=== PATIENT | female | born 1985 | race African-American/Black ===

== ENCOUNTER 2017-01-27 15:28 | Emergency (ER) | payer MEDICAID, OTHER ==
[~2017-01-27 15:28] MED LIST: CLIN1CAP5 PO; IBUP800T23 PO; MMW SSP; TRAM50 PO
[2017-01-27 15:30] VITALS: BP 133/78; PULSE 72; RESP 16; TEMP 98.2; O2SAT 99
[2017-01-27] MEDS ORDERED: diphenhydrAMINE HCL 25 MG CAP PO ONE (16:00)
[2017-01-27] MEDS ORDERED: predniSONE 50 MG TAB PO ONE (16:00)
[2017-01-27] MEDS ORDERED: FAMOTIDINE 20 MG TAB PO ONE (16:00)
[2017-01-27] MEDS ORDERED: PRED50 PO (17:06)
--- NOTE | 2017-01-27 17:06 | PD ---
HPI Chief Complaint: Allergic/Adverse Reaction Time Seen by Provider: 15:44 Travel History International Travel<30 days: No Contact w/Intl Traveler<30days: No Traveled to known affect area: No History of Present Illness HPI Patient is a 31 year old female who comes in complaining of itching and swelling to her left arm and eyelid as well as itching. She says she noticed a bump to her left shoulder that was very itchy last night. She also noticed one next to her left eye. She says it got worse and people at work told her she should come to the ED. she says she was cleaning her house yesterday and does not know if there was some sort of insect that bit better. She was concerned about possible brown recluse bite. She denies any swelling of her mouth or throat. She denies any difficulty breathing. PFSH Past Medical History Blood Disorders: No Depression: Yes Cancer: No Cardiovascular Problems: No Diabetes: No Patient Takes Glucophage: No Diminished Hearing: No Endocrine: No Gastrointestinal Disorders: No Genitourinary: No Immune Disorder: No Musculoskeletal: No Neurologic: No Psychiatric: Yes Reproductive: No Respiratory: No Tetanus Vaccination: < 5 Years ?: Not LMP: 12/29/2016 : 3 Para: 3 Tubal Ligation: Yes (2010) Past Surgical History Abdominal Surgery: No Cardiac Surgery: No Section: Yes Ear Surgery: No Endocrine Surgery: No Eye Surgery: No Genitourinary Surgery: No Gynecologic Surgery: Yes ( ) Neurologic Surgery: No Oral Surgery: No Thoracic Surgery: No Other Surgery: Yes Social History Alcohol Use: No Tobacco Use: Yes (4-5 per day) Substance Use: No Allergies-Medications (Allergen,Severity, Reaction): Coded Allergies: Penicillin (Verified Allergy, Severe, HIVES, 12/22/14) Reported Meds & Prescriptions Reported Meds & Active Scripts Active Magic Mouthwash-Diphenhy Formula (Lidocaine/Diphenhydr/Alum/Mg/Simeth) Ml 5-10 Ml SSP 5 TIMES A DAY PRN MAGIC MOUTHWASH CONTAINS 1/3 VISCOUS LIDOCAINE, 1/3 MAALOX, AND 1/3 BENADRYL. Ultram (Tramadol HCl) 50 Mg Tab 50 Mg PO Q6 PRN FOR PAIN Ibuprofen 800 Mg Tab 800 Mg PO Q6 PRN Clindamycin Hcl (Clindamycin HCl) 150 Mg Cap 2 Tab PO Q8H 14 Days Review of Systems General / Constitutional: No: Fever, Chills Eyes: No: Blurred Vision HENT: No: Headaches, Lightheadedness Cardiovascular: No: Chest Pain or Discomfort Respiratory: No: Shortness of Breath, Wheezing Gastrointestinal: No: Nausea, Vomiting Musculoskeletal: Positive: Edema Skin: Positive Rash, Positive Itching Neurologic: No: Weakness, Dizziness Physical Exam Narrative GENERAL: Awake and alert, in no acute distress. SKIN: Focused skin assessment warm/dry. Insect bite to left posterior shoulder with surrounding swelling. Swelling of the left upper and lower eyelid. HEAD: Atraumatic. Normocephalic. EYES: Pupils equal and round. No scleral icterus. Extraocular movements intact , no pain with eye movement. No conjunctival injection. ENT: Mucous membranes pink and moist. No tongue swelling. No pharyngeal swelling. CARDIOVASCULAR: Regular rate and rhythm. No murmur appreciated. RESPIRATORY: No accessory muscle use. Clear to auscultation. Breath sounds equal bilaterally. MUSCULOSKELETAL: No obvious deformities. No clubbing. No cyanosis. NEUROLOGICAL: Awake and alert. No obvious cranial nerve deficits. Motor grossly within normal limits. Normal speech. Data Data Last Documented VS Vital Signs Date Time Temp Pulse Resp B/P Pulse Ox O2 Delivery O2 Flow Rate FiO2 01/27/17 16:32 Room Air 01/27/17 15:43 16 01/27/17 15:30 98.2 72 133/78 99 Orders Prednisone (Deltasone) (01/27/17 16:00) Diphenhydramine (Benadryl) (01/27/17 16:00) Famotidine (Pepcid) (01/27/17 16:00) [facility] Medical Decision Making Medical Screen Exam Complete: Yes Emergency Medical Condition: Yes Medical Record Reviewed: Yes Differential Diagnosis Insect bites versus allergic reaction versus cellulitis Narrative Course Patient is a 31-year-old female comes in complaining of itching and swelling to her left shoulder as well as her left eye. Exam shows what looks to be insect bites with surrounding edema. There is no signs of airway compromise. Patient given a dose of prednisone, Benadryl, famotidine. Her symptoms improved. Given a prescription for prednisone. Advised to continue Benadryl as needed for itching and swelling. Advised to follow-up with her doctor. Advised to return to the ED as needed for any worsening symptoms. Diagnosis Primary Impression: Insect bite Qualified Code: W57.XXXA - Insect bite, initial encounter Additional Impression: Allergic reaction Qualified Code: T78.40XA - Allergic reaction, initial encounter Patient Instructions: General Allergic Reaction (ED), General Instructions, Insect Bite or Sting (ED) Additional Instructions: Take Benadryl as needed for itching/swelling. Take the Prednisone starting tomorrow as you already had a dose today. Follow up with your doctor. Return to the ED as needed for any worsening symptoms. Scripts Prednisone 50 Mg Tab50 Mg PO DAILY 3 Days Ref 0 Prov:Lucrecia Klein MD 01/27/17 Disposition: 01 DISCHARGE HOME Condition: Stable Lucrecia Klein MD January 27, 2017 17:06
[2017-01-27 17:20] VITALS: BP 128/74
== END 2017-01-27 17:25 | disposition home or self-care (01) ==
LOC: NEPD 16:22
DX: S40.262A Insect bite (nonvenomous) of left shoulder, initial encounter (principal); S00.262A Insect bite (nonvenomous) of left eyelid and periocular area, initial encounter; T78.40XA Allergy, unspecified, initial encounter; Z72.0 Tobacco use; Z86.59 Personal history of other mental and behavioral disorders; W57.XXXA Bitten or stung by nonvenomous insect and other nonvenomous arthropods, initial encounter
CPT/HCPCS: 99283; J7512

== ENCOUNTER 2017-09-06 20:16 | Emergency (ER) | payer MEDICAID ==
[~2017-09-06 20:16] MED LIST changes: +PRED50 PO
[2017-09-06 20:18] VITALS: BP 135/70; PULSE 90; RESP 16; TEMP 99.2; O2SAT 98
== END 2017-09-06 21:00 | disposition left against medical advice (07) ==
LOC: NED 20:16
DX: Z53.21 Procedure and treatment not carried out due to patient leaving prior to being seen by health care provider (principal)
CPT/HCPCS: 99281

== ENCOUNTER 2017-09-07 19:41 | Emergency (ER) | payer MEDICAID ==
[2017-09-07 19:43] VITALS: BP 124/58; PULSE 69; RESP 16; TEMP 99.2; O2SAT 98
--- NOTE | 2017-09-07 21:08 | PD ---
HPI Chief Complaint: ENT Complaint Time Seen by Provider: 19:49 Travel History International Travel<30 days: No Contact w/Intl Traveler<30days: No Traveled to known affect area: No History of Present Illness HPI Patient is a 32-year-old female presenting to him in for evaluation of right ear pain, sore throat, headache. Patient states the pain started in her left upper tooth, she feels this is what is causing her ear pain and sore throat as well as headache. She states initially ibuprofen was controlling her symptoms regarding the toothache however the symptoms gradually worsened prompting her visit to the emergency department. Patient denies any visual changes, fever, chills, nausea, vomiting. She denies any dysphasia or drooling. She reports pain as a 5 out of 10 and states it is sore and aching. She has not attempted to contact a dentist regarding her toothache. Exacerbated with chewing and movement. It is somewhat relieved at rest. PFSH Past Medical History Blood Disorders: No Depression: Yes Cancer: No Cardiovascular Problems: No Diabetes: No Diminished Hearing: No Endocrine: No Gastrointestinal Disorders: No Genitourinary: No Immune Disorder: No Musculoskeletal: No Neurologic: No Psychiatric: Yes Reproductive: No Respiratory: No ?: Unknown LMP: 08/07/17 : 3 Para: 3 Tubal Ligation: Yes (2010) Past Surgical History Abdominal Surgery: No Cardiac Surgery: No Section: Yes Ear Surgery: No Endocrine Surgery: No Eye Surgery: No Genitourinary Surgery: No Gynecologic Surgery: Yes ( ) Neurologic Surgery: No Oral Surgery: No Thoracic Surgery: No Other Surgery: Yes Social History Alcohol Use: No Tobacco Use: Yes (4-5 per day) Substance Use: No Allergies-Medications (Allergen,Severity, Reaction): Coded Allergies: penicillin G (Unverified Allergy, Severe, HIVES, 04/17/17) Reported Meds & Prescriptions Reported Meds & Active Scripts Active Prednisone 50 Mg Tab 50 Mg PO DAILY 3 Days Magic Mouthwash-Diphenhy Formula (Lidocaine/Diphenhydr/Alum/Mg/Simeth) Ml 5-10 Ml SSP 5 TIMES A DAY PRN MAGIC MOUTHWASH CONTAINS 1/3 VISCOUS LIDOCAINE, 1/3 MAALOX, AND 1/3 BENADRYL. Ultram (Tramadol HCl) 50 Mg Tab 50 Mg PO Q6 PRN FOR PAIN Ibuprofen 800 Mg Tab 800 Mg PO Q6 PRN Clindamycin Hcl (Clindamycin HCl) 150 Mg Cap 2 Tab PO Q8H 14 Days Review of Systems Except as stated in HPI: all other systems reviewed are Neg HENT: Positive: Headaches, Sore Throat, Dental Difficulties Physical Exam Narrative GENERAL: Well-appearing well-developed, alert female. Resting in no acute distress. SKIN: Warm and dry. HEAD: Normocephalic. EYES: No scleral icterus. No injection or drainage. CARDIOVASCULAR: Regular rate RESPIRATORY: No accessory muscle use. Data Data Last Documented VS Vital Signs Date Time Temp Pulse Resp B/P (MAP) Pulse Ox O2 Delivery O2 Flow Rate FiO2 09/07/17 19:43 99.2 69 16 124/58 (80) 98 Room Air MDM Medical Decision Making Medical Screen Exam Complete: Yes Emergency Medical Condition: Yes Interpretation(s) Vital Signs Date Time Temp Pulse Resp B/P (MAP) Pulse Ox O2 Delivery O2 Flow Rate FiO2 09/07/17 19:43 99.2 69 16 124/58 (80) 98 Room Air Differential Diagnosis Dentalgia versus abscess versus trigeminal neuralgia versus otitis media versus otitis externa versus sinusitis versus other Narrative Course Patient is a 32-year-old female presenting to urgent arm for evaluation of pain to her ear, tooth, head and throat. She is well-appearing, vital signs are stable. Patient is awaiting bed placement. She was initially seen in triage. Patient Kevin Sue has decided to leave the hospital against medical advice. This patient has the capacity to refuse care and understands the risks of leaving, including permanent disability and/or , and has had an opportunity to ask questions about her condition. The patient has been informed that she may return for care at any time, and follow up has been arranged/advised. Diagnosis Primary Impression: Left against medical advice Bethany Porter Sep 07, 2017 21:08
== END 2017-09-07 21:00 | disposition left against medical advice (07) ==
LOC: NETRI 19:41
DX: H92.01 Otalgia, right ear (principal); R51 Headache; J02.9 Acute pharyngitis, unspecified; F17.200 Nicotine dependence, unspecified, uncomplicated
CPT/HCPCS: 99281